=== PATIENT | female | born 1945 | race African-American/Black ===

== ENCOUNTER → 2017-03-24 | Outpatient (CLI) | payer MEDICARE, MEDICAID ==
[~2017-03-24] MED LIST: ADEMPAS PO; AMBR10TA3 PO; ANAS1TAB7 PO; BENA20TA3 PO; CARV12.545 PO; FURO20TA4 PO; LETAIRIS PO; METO25TA6 PO; NEPVIT PO; OCD PO; OMEP20TA2 PO; POTA10CA42 PO; RIVA20TA PO; SPIR25TA4 PO
[2017-03-24 10:27] LABS: EOSINOPHILS % 1.5 % (0.0-5.0); HEMATOCRIT. 34.4 % (36.0-48.0); HEMOGLOBIN. 11.1 g/dL (12.0-16.0); LYMPHOCYTES % 18.8 % (20.0-50.0); MEAN CORPUSCULAR HEMOGLOBIN 28.4 pg (28.0-32.0); MEAN CORPUSCULAR VOLUME 87.9 fL (81.0-99.0); MEAN PLATELET VOLUME 7.9 fl (7.4-10.4); MONOCYTES % 10.9 % (2.0-8.0); NEUTROPHILS % 67.8 % (40.0-76.0); PLATELET 183 x1000/uL (130-400); RED BLOOD CELL COUNT 3.91 mill/uL (4.2-5.4); RED CELL DISTRIBUTION WIDTH 15.9 % (11.6-14.6)
[2017-03-24 10:48] LABS: CARBON DIOXIDE 36 mEq/L (21-32); CHLORIDE 98 mEq/L (98-107); HDL CHOLESTEROL 91 mg/dL (40-59); LDL CHOLESTEROL 24 mg/dL (5-100)
== END | disposition home or self-care (01) ==
LOC: LAB 09:59
PROVIDERS: ATTEND Internal Medicine Nephrology
DX: I50.9 Heart failure, unspecified (principal)
CPT/HCPCS: 36415; 80048; 80061; 85025

== ENCOUNTER 2017-03-30 07:16 | Inpatient (IN) | payer MEDICARE, MEDICAID ==
[~2017-03-30] VITALS: Ht 170.2 cm; Wt 76.2 kg
[2017-03-30] MEDS ORDERED: METHYLPREDNISOLONE SOD SUCC 125 MG/2 ML VIAL IV ONE (08:00)
[2017-03-30] MEDS ORDERED: IPRATROPIUM/ALBUTEROL 0.5-3(2.5)MG/3ML NEB HHN ONE (08:00)
[2017-03-30 08:16] LABS: BASOPHILS % 1.2 % (0.0-2.0); EOSINOPHILS % 1.9 % (0.0-5.0); HEMATOCRIT. 34.1 % (36.0-48.0); LYMPHOCYTES % 20.5 % (20.0-50.0); MEAN CORPUSCULAR HEMOGLOBIN 28.2 pg (28.0-32.0); MEAN PLATELET VOLUME 8.2 fl (7.4-10.4); MONOCYTES % 11.1 % (2.0-8.0); NEUTROPHILS % 65.3 % (40.0-76.0); PLATELET 175 x1000/uL (130-400); RED BLOOD CELL COUNT 3.88 mill/uL (4.2-5.4); RED CELL DISTRIBUTION WIDTH 15.7 % (11.6-14.6)
[2017-03-30 08:27] LABS: D-DIMER 0.22 mg/L FEU (<0.50); INR 1.3; PARTIAL THROMBOPLASTIN TIME 28.5 sec (23.4-31.0); PROTHROMBIN TIME 13.1 sec (9.4-11.6)
[2017-03-30 08:33] LABS: CARBON DIOXIDE 36 mEq/L (21-32); CHLORIDE 97 mEq/L (98-107); TROPONIN I 0.32 ng/mL (0.00-0.04)
[2017-03-30] MEDS ORDERED: FUROSEMIDE 40MG/4ML VIAL IVP ONE (11:15)
[2017-03-30 17:15] VITALS: BP 105/54
[2017-03-30] MEDS ORDERED: ACETAMINOPHEN 325MG TABLET PO PRN (18:00)
[2017-03-30] MEDS ORDERED: LORAZEPAM 2MG/ML CPJ IV PRN (18:00)
[2017-03-30] MEDS ORDERED: HYDROCODONE/ACETAMINOPHEN 5/325MG TABLET PO PRN (18:00)
[2017-03-30] MEDS ORDERED: ONDANSETRON HCL 4MG/2ML VIAL IV PRN (18:00)
[2017-03-30] MEDS ORDERED: CLONIDINE 0.1MG TABLET PO PRN (18:00)
[2017-03-30] MEDS ORDERED: MORPHINE SULFATE 4 MG/ML CPJ (NOT FOR IM USE) IV PRN (18:15)
[2017-03-30 20:00] VITALS: BP 105/63
[2017-03-30] MEDS: FUROSEMIDE 40MG/4ML VIAL IV SCH (20:29)
[2017-03-30] MEDS ORDERED: ENOXAPARIN 40MG/0.4ML SYR SUBCUT SCH (21:00)
[2017-03-31] VITALS: BP 101/50
[2017-03-31 00:34] LABS: TROPONIN I 0.26 ng/mL (0.00-0.04)
[2017-03-31 04:00] VITALS: BP 105/63
[2017-03-31 05:24] LABS: CLARITY URINE CLEAR (CLEAR); COLOR URINE YELLOW (YELLOW); GLUCOSE URINE NEGATIVE (NEGATIVE); KETONES URINE NEGATIVE (NEGATIVE); LEUKOCYTE ESTERASE URINE NEGATIVE (NEGATIVE); NITRITE URINE NEGATIVE (NEGATIVE); OCCULT BLOOD URINE NEGATIVE (NEGATIVE); PROTEIN URINE NEGATIVE (NEGATIVE); SPECIFIC GRAVITY URINE 1.011 (1.005-1.030); UROBILINOGEN URINE 0.2 E.U./dL (0.2-1.0)
[2017-03-31 05:41] LABS: *AMPHETAMINES SCREEN URINE NEGATIVE (NEGATIVE); *BARBITURATES SCREEN URINE NEGATIVE (NEGATIVE); *BENZODIAZEPINES SCREEN URINE NEGATIVE (NEGATIVE); *COCAINE SCREEN URINE NEGATIVE (NEGATIVE); CANNABINOID URINE SCREEN NEGATIVE (NEGATIVE); METHADONE URINE SCREEN NEGATIVE (NEGATIVE); OPIATES URINE SCREEN NEGATIVE (NEGATIVE); PHENCYCLIDINE URINE SCREEN NEGATIVE (NEGATIVE)
[2017-03-31 07:42] LABS: TROPONIN I 0.31 ng/mL (0.00-0.04)
[2017-03-31 08:00] VITALS: BP 119/59
[2017-03-31] MEDS: CARVEDILOL 12.5MG TABLET PO SCH ×2 (08:58→21:00)
[2017-03-31] MEDS: THIAMINE HCL 100MG TABLET PO SCH (08:59)
[2017-03-31] MEDS: SPIRONOLACTONE 25MG TABLET PO SCH (08:59)
[2017-03-31] MEDS: FOLIC ACID/VITAMIN B COMP W-C TABLET PO SCH (08:59)
[2017-03-31] MEDS: ASPIRIN 81MG EC TABLET PO SCH (08:59)
[2017-03-31] MEDS ORDERED: BENAZEPRIL 20MG TABLET PO SCH (09:00)
[2017-03-31] MEDS: POTASSIUM CHLORIDE 20MEQ TABLET SR PO SCH (09:00)
[2017-03-31] MEDS ORDERED: METOPROLOL TARTRATE 25MG TABLET PO SCH (09:00)
[2017-03-31] MEDS: OMEPRAZOLE 20MG CAPSULE EXTENDED RELEASE PO SCH (09:00)
[2017-03-31] MEDS ORDERED: FUROSEMIDE 40MG/4ML VIAL IV SCH (09:00)
[2017-03-31] MEDS ORDERED: AMBRISENTAN 10 MG PO SCH (09:00)
[2017-03-31] MEDS: FUROSEMIDE 40MG/4ML VIAL IV SCH ×2 (09:00→17:48)
[2017-03-31] MEDS: CALCIUM CARBONATE/VITAMIN D3 500MG TABLET PO SCH ×2 (09:01→17:48)
[2017-03-31 12:20] VITALS: BP 106/63
[2017-03-31] MEDS: ADEMPAS 2.5 MG PO SCH ×2 (14:26→22:01)
[2017-03-31 16:00] VITALS: BP 92/50
[2017-03-31] MEDS: RIVAROXABAN 20 MG TABLET PO SCH (17:47)
[2017-03-31] MEDS: ANASTROZOLE 1 MG TABLET PO SCH (18:30)
[2017-03-31] MEDS: LETAIRIS 10 MG PO SCH (18:58)
[2017-03-31 20:25] VITALS: BP 96/55
[2017-04-01] VITALS: BP 97/56
[2017-04-01 04:00] VITALS: BP 106/48
[2017-04-01] MEDS: ADEMPAS 2.5 MG PO SCH ×2 (06:00→13:26)
[2017-04-01 07:08] LABS: CARBON DIOXIDE 37 mEq/L (21-32); CHLORIDE 94 mEq/L (98-107); PHOSPHORUS 3.8 mg/dL (2.5-4.9)
[2017-04-01 07:33] LABS: BASOPHILS % 1.2 % (0.0-2.0); EOSINOPHILS % 2.8 % (0.0-5.0); HEMOGLOBIN. 11.7 g/dL (12.0-16.0); LYMPHOCYTES % 25.6 % (20.0-50.0); MEAN CORPUSCULAR HEMOGLOBIN 28.5 pg (28.0-32.0); MEAN CORPUSCULAR VOLUME 90.4 fL (81.0-99.0); MEAN PLATELET VOLUME 8.6 fl (7.4-10.4); MONOCYTES % 11.3 % (2.0-8.0); NEUTROPHILS % 59.1 % (40.0-76.0); PLATELET 165 x1000/uL (130-400); RED BLOOD CELL COUNT 4.09 mill/uL (4.2-5.4); RED CELL DISTRIBUTION WIDTH 15.9 % (11.6-14.6)
[2017-04-01 08:00] VITALS: BP 92/56
[2017-04-01] MEDS: SPIRONOLACTONE 25MG TABLET PO SCH (08:00)
[2017-04-01] MEDS: CARVEDILOL 12.5MG TABLET PO SCH (08:00)
[2017-04-01] MEDS: ASPIRIN 81MG EC TABLET PO SCH (08:01)
[2017-04-01] MEDS: FOLIC ACID/VITAMIN B COMP W-C TABLET PO SCH (08:01)
[2017-04-01] MEDS: POTASSIUM CHLORIDE 20MEQ TABLET SR PO SCH (08:01)
[2017-04-01] MEDS: OMEPRAZOLE 20MG CAPSULE EXTENDED RELEASE PO SCH (08:01)
[2017-04-01] MEDS: THIAMINE HCL 100MG TABLET PO SCH (08:01)
[2017-04-01] MEDS: FUROSEMIDE 40MG/4ML VIAL IV SCH (08:02)
[2017-04-01] MEDS: CALCIUM CARBONATE/VITAMIN D3 500MG TABLET PO SCH ×2 (08:03→16:35)
[2017-04-01] MEDS: ANASTROZOLE 1 MG TABLET PO SCH (08:06)
[2017-04-01] MEDS: LETAIRIS 10 MG PO SCH (08:07)
[2017-04-01] MEDS ORDERED: RIVAROXABAN 20 MG TABLET PO SCH (09:00)
[2017-04-01] MEDS ORDERED: FUROSEMIDE 20MG TABLET PO SCH ×2 (09:00→18:00)
[2017-04-01 12:00] VITALS: BP 91/54
[2017-04-01 16:00] VITALS: BP 99/52
[2017-04-01] MEDS: RIVAROXABAN 20 MG TABLET PO SCH (16:35)
[2017-04-01 18:11] VITALS: BP 99/52
== END 2017-04-01 19:20 | disposition home or self-care (01) | DRG 291 ==
LOC: ER 07:36 → 7WST 11:59 → EDBEDREQ 12:00 → EDBEDREQTM 12:00 → ENRESERV 15:46
PROVIDERS: ADMIT Internal Medicine Nephrology; ATTEND Internal Medicine Nephrology
DX: I11.0 Hypertensive heart disease with heart failure (principal); J96.00 Acute respiratory failure, unspecified whether with hypoxia or hypercapnia; J44.1 Chronic obstructive pulmonary disease with (acute) exacerbation; I27.2 Other secondary pulmonary hypertension; E44.1 Mild protein-calorie malnutrition; Z99.81 Dependence on supplemental oxygen; I50.43 Acute on chronic combined systolic (congestive) and diastolic (congestive) heart failure; D64.9 Anemia, unspecified; D72.819 Decreased white blood cell count, unspecified; Z96.651 Presence of right artificial knee joint; G89.29 Other chronic pain; I48.91 Unspecified atrial fibrillation; K43.9 Ventral hernia without obstruction or gangrene; Z82.49 Family history of ischemic heart disease and other diseases of the circulatory system; Z85.3 Personal history of malignant neoplasm of breast; Z86.711 Personal history of pulmonary embolism; Z86.718 Personal history of other venous thrombosis and embolism; Z92.3 Personal history of irradiation; Z88.6 Allergy status to analgesic agent; Z91.013 Allergy to seafood; Z79.899 Other long term (current) drug therapy; Z68.26 Body mass index [BMI] 26.0-26.9, adult
CPT/HCPCS: 36415; 71010; 76700; 80048; 80053; 80305; 81003; 82040; 82550; 83605; 83690; 83735; 83880; 84100; 84484; 85025; 85379; 85610; 85730; 87040; 93005; 93970; 94640; 96374; 96375; 99291; J1650; J1940; J2930; J7620

== ENCOUNTER 2018-03-16 05:03 | Inpatient (IN) | payer MEDICARE, MEDICAID ==
[~2018-03-16] VITALS: Ht 167.6 cm; Wt 80.1 kg
[2018-03-16] VITALS (31 sets, daily range): BP systolic 91–136; BP diastolic 45–73
[~2018-03-16 05:03] MED LIST changes: +BENA20TA10 PO; -BENA20TA3 PO; -SPIR25TA4 PO; +SPIR25TA6 PO
[2018-03-16] MEDS ORDERED: METHYLPREDNISOLONE SOD SUCC 125 MG/2 ML VIAL IV STA (06:21)
[2018-03-16] MEDS ORDERED: ALBUTEROL (0.083%) 2.5MG/3ML NEB HHN STA (06:21)
[2018-03-16] MEDS ORDERED: IPRATROPIUM BROMIDE (0.02%) 0.5MG/2.5ML NEB HHN STA (06:21)
[2018-03-16 08:07] LABS: BASOPHILS % 0.6 % (0.0-2.0); EOSINOPHILS % 0.9 % (0.0-5.0); HEMATOCRIT. 28.4 % (36.0-48.0); LYMPHOCYTES % 21.4 % (20.0-50.0); MEAN CORPUSCULAR HEMOGLOBIN 25.1 pg (28.0-32.0); MEAN CORPUSCULAR VOLUME 79.3 fL (81.0-99.0); MEAN PLATELET VOLUME 8.1 fl (7.4-10.4); MONOCYTES % 10.5 % (2.0-8.0); NEUTROPHILS % 66.6 % (40.0-76.0); PLATELET 299 x1000/uL (130-400); RED BLOOD CELL COUNT 3.58 mill/uL (4.2-5.4); RED CELL DISTRIBUTION WIDTH 18.8 % (11.6-14.6)
[2018-03-16 08:09] LABS: INR 1.3; PROTHROMBIN TIME 12.7 sec (9.1-11.1)
[2018-03-16 08:16] LABS: CHLORIDE 93 mEq/L (98-107)
[2018-03-16] MEDS ORDERED: ASPIRIN 325MG EC TABLET PO ONE (09:00)
[2018-03-16] MEDS ORDERED: ONDANSETRON HCL 4MG/2ML INJ IV ONE (10:00)
[2018-03-16] MEDS: FUROSEMIDE 40MG/4ML VIAL IVP SCH ×3 (10:53→10:58)
[2018-03-16] MEDS ORDERED: FUROSEMIDE 40MG/4ML VIAL IVP NR (11:45)
[2018-03-16 11:46] LABS: BG BASE EXCESS 5.7 mmol/L (-2.0-2.0); BG DEOXYHEMOGLOBIN 3.4 % (0.0-5.0); BG FRACTION INSPIRED OXYGEN 100; BG HCO3 ACT 41.4 mmol/L (22.0-26.0); BG METHEMOGLOBIN 0.4 % (0.0-1.5); BG OXYGEN SATURATION 96.6 % (92.0-98.5); BG OXYHEMOGLOBIN 96.2 % (94.0-97.0); BG PCO2 183.1 mmHg (35.0-45.0); BG PH 6.972 (7.350-7.450); BG PO2 125.3 mmHg (75.0-100.0); BG SAMPLE SITE LEFT BRACHIAL; BG TOTAL HEMOGLOBIN 10.7 g/dL (12.0-18.0); BG VENT MODE AMBU BAG
[2018-03-16] MEDS ORDERED: SUCCINYLCHOLINE CHLORIDE 200MG/10ML VIAL IV ONE (12:00)
[2018-03-16] MEDS ORDERED: ETOMIDATE 2MG/ML 10ML VIAL IV ONE (12:00)
[2018-03-16] MEDS ORDERED: NON FORMULARY PATIENT HOME MED EA XX SCH ×2 (12:45)
[2018-03-16] MEDS ORDERED: IPRATROPIUM/ALBUTEROL 0.5-3(2.5)MG/3ML NEB HHN PRN (12:45)
[2018-03-16] MEDS: PROPOFOL 10MG/ML 100ML 100 ML IV PRN (12:52)
[2018-03-16] MEDS: METHYLPREDNISOLONE SOD SUCC 125 MG/2 ML VIAL IV SCH ×2 (12:52→18:23)
[2018-03-16 13:21] LABS: BG CARBOXYHEMOGLOBIN 0.3 % (0.5-1.5); BG DEOXYHEMOGLOBIN 0.5 % (0.0-5.0); BG FRACTION INSPIRED OXYGEN 100; BG HCO3 ACT 29.2 mmol/L (22.0-26.0); BG METHEMOGLOBIN 0.3 % (0.0-1.5); BG OXYGEN SATURATION 99.5 % (92.0-98.5); BG OXYHEMOGLOBIN 98.9 % (94.0-97.0); BG PCO2 59.9 mmHg (35.0-45.0); BG PH 7.306 (7.350-7.450); BG PO2 355.1 mmHg (75.0-100.0); BG SAMPLE SITE RIGHT RADIAL; BG TIDAL VOLUME(mL) 500 mL; BG TOTAL HEMOGLOBIN 9.8 g/dL (12.0-18.0); BG VENT MODE VENT - A/C; BG VENT RATE 24 set
[2018-03-16] MEDS: PANTOPRAZOLE SODIUM 40 MG/VIAL IV SCH (14:31)
[2018-03-16] MEDS: CEFEPIME 1,000 MG in DEXTROSE 5% WATER 50 ML IV SCH (14:31)
[2018-03-16] MEDS: BUDESONIDE 0.5MG/2ML NEB HHN SCH ×2 (15:14→20:57)
[2018-03-16] MEDS: IPRATROPIUM/ALBUTEROL 0.5-3(2.5)MG/3ML NEB HHN SCH ×2 (15:14→20:58)
[2018-03-16 16:19] LABS: CLARITY URINE CLEAR (CLEAR); COLOR URINE YELLOW (YELLOW); KETONES URINE NEGATIVE (NEGATIVE); LEUKOCYTE ESTERASE URINE TRACE (NEGATIVE); NITRITE URINE NEGATIVE (NEGATIVE); OCCULT BLOOD URINE NEGATIVE (NEGATIVE); PROTEIN URINE 1+ (NEGATIVE); SPECIFIC GRAVITY URINE 1.015 (1.005-1.030); UROBILINOGEN URINE 0.2 E.U./dL (0.2-1.0)
[2018-03-16] MEDS: LETAIRIS 10 MG PO SCH (16:28)
[2018-03-16] MEDS: ENOXAPARIN 80MG/0.8ML SYR SUBCUT SCH (16:28)
[2018-03-16] MEDS: METRONIDAZOLE 500 MG PREMIX 100 ML IV SCH ×2 (16:29→22:34)
[2018-03-16 16:38] LABS: *AMPHETAMINES SCREEN URINE NEGATIVE (NEGATIVE); CANNABINOID URINE SCREEN NEGATIVE (NEGATIVE)
[2018-03-16 16:39] LABS: *BARBITURATES SCREEN URINE NEGATIVE (NEGATIVE); *BENZODIAZEPINES SCREEN URINE NEGATIVE (NEGATIVE); *COCAINE SCREEN URINE NEGATIVE (NEGATIVE); METHADONE URINE SCREEN NEGATIVE (NEGATIVE); OPIATES URINE SCREEN NEGATIVE (NEGATIVE); PHENCYCLIDINE URINE SCREEN NEGATIVE (NEGATIVE)
[2018-03-16] MEDS ORDERED: ADEMPAS 2.5 MG PO SCH (17:00)
[2018-03-16] MEDS: AMLODIPINE 5MG TABLET PO SCH (21:00)
[2018-03-17] VITALS (39 sets, daily range): BP systolic 80–155; BP diastolic 44–76
[2018-03-17] MEDS: IPRATROPIUM/ALBUTEROL 0.5-3(2.5)MG/3ML NEB HHN SCH ×6 (00:22→20:26)
[2018-03-17] MEDS: METHYLPREDNISOLONE SOD SUCC 125 MG/2 ML VIAL IV SCH ×5 (00:45→23:34)
[2018-03-17] MEDS ORDERED: DEXTROSE 50% WATER 50ML SYRINGE IV PRN (01:00)
[2018-03-17] MEDS: CEFEPIME 1,000 MG in DEXTROSE 5% WATER 50 ML IV SCH ×2 (01:29→12:53)
[2018-03-17] MEDS: PROPOFOL 10MG/ML 100ML 100 ML IV PRN ×2 (05:00→18:41)
[2018-03-17] MEDS: ENOXAPARIN 80MG/0.8ML SYR SUBCUT SCH (05:02)
[2018-03-17] MEDS: METRONIDAZOLE 500 MG PREMIX 100 ML IV SCH ×3 (05:03→21:02)
[2018-03-17] MEDS ORDERED: BLOOD SUGAR DIAGNOSTIC STRIP TEST SCH (06:00)
[2018-03-17 06:27] LABS: HEMATOCRIT. 25.2 % (36.0-48.0); HEMOGLOBIN. 8.1 g/dL (12.0-16.0); MEAN CORPUSCULAR HEMOGLOBIN 24.6 pg (28.0-32.0); MEAN CORPUSCULAR VOLUME 76.8 fL (81.0-99.0); MEAN PLATELET VOLUME 8.3 fl (7.4-10.4); PLATELET 252 x1000/uL (130-400); RED BLOOD CELL COUNT 3.28 mill/uL (4.2-5.4); RED CELL DISTRIBUTION WIDTH 18.6 % (11.6-14.6)
[2018-03-17] MEDS: BLOOD SUGAR DIAGNOSTIC STRIP TEST SCH ×4 (07:30→23:34)
[2018-03-17] MEDS: BUDESONIDE 0.5MG/2ML NEB HHN SCH ×2 (07:44→20:35)
[2018-03-17] MEDS: INSULIN LISPRO 100 UNITS/ML SUBCUT SCH ×4 (08:20→20:57)
[2018-03-17] MEDS: AMLODIPINE 5MG TABLET PO SCH ×2 (09:00→20:29)
[2018-03-17] MEDS ORDERED: FUROSEMIDE 20MG/2ML VIAL IVP SCH ×3 (09:00)
[2018-03-17 09:15] LABS: PLATELET ESTIMATE NORMAL
[2018-03-17 09:22] LABS: BG BASE EXCESS 7.1 mmol/L (-2.0-2.0); BG CARBOXYHEMOGLOBIN 0.8 % (0.5-1.5); BG DEOXYHEMOGLOBIN 2.8 % (0.0-5.0); BG FRACTION INSPIRED OXYGEN 60; BG HCO3 ACT 31.1 mmol/L (22.0-26.0); BG METHEMOGLOBIN 0.3 % (0.0-1.5); BG OXYGEN SATURATION 97.2 % (92.0-98.5); BG OXYHEMOGLOBIN 96.1 % (94.0-97.0); BG PCO2 41.6 mmHg (35.0-45.0); BG PH 7.491 (7.350-7.450); BG PO2 93.5 mmHg (75.0-100.0); BG SAMPLE SITE RIGHT BRACHIAL; BG TIDAL VOLUME(mL) 500 mL; BG TOTAL HEMOGLOBIN 8.3 g/dL (12.0-18.0); BG VENT MODE VENT - A/C; BG VENT RATE 16 set
[2018-03-17] MEDS: LETAIRIS 10 MG PO SCH (09:28)
[2018-03-17] MEDS: PANTOPRAZOLE SODIUM 40 MG/VIAL IV SCH (09:29)
[2018-03-17] MEDS ORDERED: PROPOFOL 10MG/ML 100ML 100 ML IV PRN (11:01)
[2018-03-17 16:32] LABS: HEMATOCRIT 23.9 % (36.0-48.0); HEMOGLOBIN 7.8 g/dL (12.0-16.0)
[2018-03-18] VITALS (47 sets, daily range): BP systolic 81–122; BP diastolic 48–82
[2018-03-18] MEDS: IPRATROPIUM/ALBUTEROL 0.5-3(2.5)MG/3ML NEB HHN SCH ×7 (00:06→23:59)
[2018-03-18] MEDS: CEFEPIME 1,000 MG in DEXTROSE 5% WATER 50 ML IV SCH ×2 (01:49→14:13)
[2018-03-18] MEDS: METRONIDAZOLE 500 MG PREMIX 100 ML IV SCH ×3 (05:17→21:24)
[2018-03-18] MEDS: METHYLPREDNISOLONE SOD SUCC 125 MG/2 ML VIAL IV SCH (05:17)
[2018-03-18] MEDS: BLOOD SUGAR DIAGNOSTIC STRIP TEST SCH ×3 (05:26→17:23)
[2018-03-18 05:35] LABS: HEMATOCRIT. 23.7 % (36.0-48.0); HEMOGLOBIN. 7.7 g/dL (12.0-16.0); MEAN CORPUSCULAR VOLUME 76.9 fL (81.0-99.0); MEAN PLATELET VOLUME 8.4 fl (7.4-10.4); PLATELET 228 x1000/uL (130-400); RED BLOOD CELL COUNT 3.08 mill/uL (4.2-5.4); RED CELL DISTRIBUTION WIDTH 18.9 % (11.6-14.6)
[2018-03-18 08:06] LABS: BG BASE EXCESS 9.4 mmol/L (-2.0-2.0); BG CARBOXYHEMOGLOBIN 0.1 % (0.5-1.5); BG DEOXYHEMOGLOBIN 2.5 % (0.0-5.0); BG FRACTION INSPIRED OXYGEN 60; BG HCO3 ACT 33.5 mmol/L (22.0-26.0); BG METHEMOGLOBIN 0.4 % (0.0-1.5); BG OXYGEN SATURATION 97.5 % (92.0-98.5); BG PCO2 43.8 mmHg (35.0-45.0); BG PH 7.501 (7.350-7.450); BG SAMPLE SITE RIGHT RADIAL; BG TIDAL VOLUME(mL) 500 mL; BG TOTAL HEMOGLOBIN 8.2 g/dL (12.0-18.0); BG VENT MODE VENT - A/C; BG VENT RATE 16 set
[2018-03-18] MEDS: AMLODIPINE 5MG TABLET PO SCH (08:13)
[2018-03-18] MEDS: BUDESONIDE 0.5MG/2ML NEB HHN SCH ×2 (08:47→19:51)
[2018-03-18 08:50] LABS: PLATELET ESTIMATE NORMAL
[2018-03-18] MEDS: PANTOPRAZOLE SODIUM 40 MG/VIAL IV SCH (09:51)
[2018-03-18] MEDS: LETAIRIS 10 MG PO SCH (09:51)
[2018-03-18] MEDS: PROPOFOL 10MG/ML 100ML 100 ML IV PRN ×2 (10:04→20:28)
[2018-03-18] MEDS: INSULIN LISPRO 100 UNITS/ML SUBCUT SCH ×2 (12:00→17:39)
[2018-03-18] MEDS ORDERED: AMINOPHYLLINE 1,000 MG in SODIUM CHLORIDE 0.9% 210 ML IV SCH (14:00)
[2018-03-18] MEDS: METHYLPREDNISOLONE SOD SUCC 40 MG/ML VIAL IV SCH (17:23)
[2018-03-18] MEDS ORDERED: IOHEXOL-350 100 ML BOTTLE ONE (19:44)
[2018-03-19] VITALS (46 sets, daily range): BP systolic 89–150; BP diastolic 44–74
[2018-03-19] MEDS: BLOOD SUGAR DIAGNOSTIC STRIP TEST SCH ×4 (00:25→18:06)
[2018-03-19] MEDS: CEFEPIME 1,000 MG in DEXTROSE 5% WATER 50 ML IV SCH ×2 (00:54→14:09)
[2018-03-19] MEDS: IPRATROPIUM/ALBUTEROL 0.5-3(2.5)MG/3ML NEB HHN SCH ×5 (04:05→20:16)
[2018-03-19] MEDS: METRONIDAZOLE 500 MG PREMIX 100 ML IV SCH ×3 (05:29→21:43)
[2018-03-19] MEDS: METHYLPREDNISOLONE SOD SUCC 40 MG/ML VIAL IV SCH ×2 (05:29→18:11)
[2018-03-19] MEDS: PROPOFOL 10MG/ML 100ML 100 ML IV PRN ×2 (05:30→20:40)
[2018-03-19 05:56] LABS: HEMATOCRIT. 24.8 % (36.0-48.0); HEMOGLOBIN. 7.9 g/dL (12.0-16.0); MEAN PLATELET VOLUME 8.9 fl (7.4-10.4); PLATELET 201 x1000/uL (130-400); RED BLOOD CELL COUNT 3.14 mill/uL (4.2-5.4); RED CELL DISTRIBUTION WIDTH 19.3 % (11.6-14.6)
[2018-03-19] MEDS: INSULIN LISPRO 100 UNITS/ML SUBCUT SCH ×4 (06:00→18:00)
[2018-03-19 06:21] LABS: CHLORIDE 101 mEq/L (98-107)
[2018-03-19 07:44] LABS: BG BASE EXCESS 6.9 mmol/L (-2.0-2.0); BG CARBOXYHEMOGLOBIN 0.5 % (0.5-1.5); BG FRACTION INSPIRED OXYGEN 40; BG HCO3 ACT 32.7 mmol/L (22.0-26.0); BG METHEMOGLOBIN 0.4 % (0.0-1.5); BG OXYHEMOGLOBIN 94.1 % (94.0-97.0); BG PCO2 53.8 mmHg (35.0-45.0); BG PH 7.401 (7.350-7.450); BG PO2 81.4 mmHg (75.0-100.0); BG SAMPLE SITE RIGHT BRACHIAL; BG TIDAL VOLUME(mL) 500 mL; BG TOTAL HEMOGLOBIN 8.6 g/dL (12.0-18.0); BG VENT MODE VENT - A/C; BG VENT RATE 12 set
[2018-03-19 09:03] LABS: PLATELET ESTIMATE NORMAL
[2018-03-19] MEDS: BUDESONIDE 0.5MG/2ML NEB HHN SCH (09:03)
[2018-03-19] MEDS: PANTOPRAZOLE SODIUM 40 MG/VIAL IV SCH (09:08)
[2018-03-19] MEDS: LETAIRIS 10 MG PO SCH (09:09)
[2018-03-19 14:43] LABS: BG BASE EXCESS 8.6 mmol/L (-2.0-2.0); BG CARBOXYHEMOGLOBIN 0.1 % (0.5-1.5); BG DEOXYHEMOGLOBIN 9.3 % (0.0-5.0); BG METHEMOGLOBIN 0.1 % (0.0-1.5); BG OXYGEN SATURATION 90.7 % (92.0-98.5); BG OXYHEMOGLOBIN 90.5 % (94.0-97.0); BG PCO2 52.1 mmHg (35.0-45.0); BG PH 7.432 (7.350-7.450); BG PO2 60.7 mmHg (75.0-100.0); BG PRESSURE SUPPORT 14; BG SAMPLE SITE RIGHT RADIAL; BG TIDAL VOLUME(mL) 500 mL; BG TOTAL HEMOGLOBIN 9.3 g/dL (12.0-18.0); BG VENT MODE VENT - SIMV; BG VENT RATE 12 set
[2018-03-19] MEDS: LACTULOSE 20G/30ML UDC PO PRN (20:40)
[2018-03-19] MEDS: METOCLOPRAMIDE HCL 10MG/2ML VIAL IV SCH (23:40)
[2018-03-20] VITALS (46 sets, daily range): BP systolic 97–139; BP diastolic 51–75
[2018-03-20] MEDS: IPRATROPIUM/ALBUTEROL 0.5-3(2.5)MG/3ML NEB HHN SCH ×6 (00:18→20:56)
[2018-03-20] MEDS: BLOOD SUGAR DIAGNOSTIC STRIP TEST SCH ×5 (00:58→23:37)
[2018-03-20] MEDS: CEFEPIME 1,000 MG in DEXTROSE 5% WATER 50 ML IV SCH ×2 (00:59→12:16)
[2018-03-20] MEDS: PROPOFOL 10MG/ML 100ML 100 ML IV PRN ×3 (02:58→19:53)
[2018-03-20] MEDS: LACTULOSE 20G/30ML UDC PO PRN ×2 (05:16→18:42)
[2018-03-20] MEDS: METHYLPREDNISOLONE SOD SUCC 40 MG/ML VIAL IV SCH ×2 (05:16→17:40)
[2018-03-20] MEDS: METRONIDAZOLE 500 MG PREMIX 100 ML IV SCH ×3 (05:16→22:05)
[2018-03-20] MEDS: METOCLOPRAMIDE HCL 10MG/2ML VIAL IV SCH ×4 (05:16→23:41)
[2018-03-20] MEDS: INSULIN LISPRO 100 UNITS/ML SUBCUT SCH ×5 (06:00→23:42)
[2018-03-20 07:20] LABS: BG BASE EXCESS 9.7 mmol/L (-2.0-2.0); BG CARBOXYHEMOGLOBIN 0.3 % (0.5-1.5); BG DEOXYHEMOGLOBIN 4.5 % (0.0-5.0); BG FRACTION INSPIRED OXYGEN 50; BG HCO3 ACT 35.3 mmol/L (22.0-26.0); BG METHEMOGLOBIN 0.1 % (0.0-1.5); BG OXYGEN SATURATION 95.5 % (92.0-98.5); BG OXYHEMOGLOBIN 95.1 % (94.0-97.0); BG PCO2 54.7 mmHg (35.0-45.0); BG PH 7.428 (7.350-7.450); BG PO2 81.6 mmHg (75.0-100.0); BG PRESSURE SUPPORT 14; BG SAMPLE SITE RIGHT BRACHIAL; BG TIDAL VOLUME(mL) 500 mL; BG VENT MODE VENT - SIMV; BG VENT RATE 12 set
[2018-03-20] MEDS: PANTOPRAZOLE SODIUM 40 MG/VIAL IV SCH (08:38)
[2018-03-20] MEDS: LETAIRIS 10 MG PO SCH (08:38)
[2018-03-20 09:06] LABS: HEMATOCRIT. 29.5 % (36.0-48.0); HEMOGLOBIN. 9.1 g/dL (12.0-16.0); MEAN CORPUSCULAR HEMOGLOBIN 24.7 pg (28.0-32.0); MEAN CORPUSCULAR VOLUME 79.9 fL (81.0-99.0); MEAN PLATELET VOLUME 8.8 fl (7.4-10.4); PLATELET 220 x1000/uL (130-400); RED CELL DISTRIBUTION WIDTH 19.6 % (11.6-14.6)
[2018-03-20 09:07] LABS: CHLORIDE 105 mEq/L (98-107)
[2018-03-20 09:33] LABS: PLATELET ESTIMATE NORMAL
[2018-03-20] MEDS: ENOXAPARIN 40MG/0.4ML SYR SUBCUT SCH (10:51)
[2018-03-21] VITALS (37 sets, daily range): BP systolic 88–128; BP diastolic 51–78
[2018-03-21] MEDS: CEFEPIME 1,000 MG in DEXTROSE 5% WATER 50 ML IV SCH ×2 (00:30→13:32)
[2018-03-21] MEDS: IPRATROPIUM/ALBUTEROL 0.5-3(2.5)MG/3ML NEB HHN SCH ×6 (00:37→20:21)
[2018-03-21 05:32] LABS: HEMATOCRIT. 25.4 % (36.0-48.0); MEAN CORPUSCULAR HEMOGLOBIN 24.8 pg (28.0-32.0); MEAN PLATELET VOLUME 8.6 fl (7.4-10.4); PLATELET 193 x1000/uL (130-400); RED BLOOD CELL COUNT 3.21 mill/uL (4.2-5.4)
[2018-03-21] MEDS: METOCLOPRAMIDE HCL 10MG/2ML VIAL IV SCH ×4 (05:38→23:40)
[2018-03-21] MEDS: METHYLPREDNISOLONE SOD SUCC 40 MG/ML VIAL IV SCH (05:38)
[2018-03-21] MEDS: BLOOD SUGAR DIAGNOSTIC STRIP TEST SCH ×4 (05:39→23:53)
[2018-03-21] MEDS: PROPOFOL 10MG/ML 100ML 100 ML IV PRN (05:39)
[2018-03-21] MEDS: METRONIDAZOLE 500 MG PREMIX 100 ML IV SCH ×3 (05:39→21:55)
[2018-03-21] MEDS: INSULIN LISPRO 100 UNITS/ML SUBCUT SCH ×4 (05:52→23:53)
[2018-03-21 05:53] LABS: CHLORIDE 107 mEq/L (98-107)
[2018-03-21 06:58] LABS: PLATELET ESTIMATE NORMAL
[2018-03-21] MEDS: ENOXAPARIN 40MG/0.4ML SYR SUBCUT SCH (08:37)
[2018-03-21] MEDS: LETAIRIS 10 MG PO SCH (08:37)
[2018-03-21] MEDS: PANTOPRAZOLE SODIUM 40 MG/VIAL IV SCH (08:37)
[2018-03-21 08:40] LABS: BG BASE EXCESS 8.2 mmol/L (-2.0-2.0); BG CARBOXYHEMOGLOBIN 0.8 % (0.5-1.5); BG DEOXYHEMOGLOBIN 6.1 % (0.0-5.0); BG FRACTION INSPIRED OXYGEN 50; BG HCO3 ACT 33.3 mmol/L (22.0-26.0); BG METHEMOGLOBIN 0.4 % (0.0-1.5); BG OXYGEN SATURATION 93.8 % (92.0-98.5); BG OXYHEMOGLOBIN 92.7 % (94.0-97.0); BG PCO2 50.2 mmHg (35.0-45.0); BG PO2 76.8 mmHg (75.0-100.0); BG PRESSURE SUPPORT 14; BG SAMPLE SITE RIGHT RADIAL; BG TIDAL VOLUME(mL) 500 mL; BG TOTAL HEMOGLOBIN 8.4 g/dL (12.0-18.0); BG VENT MODE VENT - SIMV; BG VENT RATE 12 set
[2018-03-21] MEDS ORDERED: FUROSEMIDE 40MG/4ML VIAL IVP NR (09:15)
[2018-03-21 10:40] LABS: BG BASE EXCESS 6.5 mmol/L (-2.0-2.0); BG CARBOXYHEMOGLOBIN 0.6 % (0.5-1.5); BG DEOXYHEMOGLOBIN 8.9 % (0.0-5.0); BG FRACTION INSPIRED OXYGEN 40; BG HCO3 ACT 31.8 mmol/L (22.0-26.0); BG METHEMOGLOBIN 0.3 % (0.0-1.5); BG OXYHEMOGLOBIN 90.2 % (94.0-97.0); BG PCO2 49.4 mmHg (35.0-45.0); BG PH 7.426 (7.350-7.450); BG PO2 63.9 mmHg (75.0-100.0); BG PRESSURE SUPPORT 8; BG SAMPLE SITE RIGHT RADIAL; BG TOTAL HEMOGLOBIN 9.6 g/dL (12.0-18.0); BG VENT MODE VENT - CPAP
[2018-03-21] MEDS ORDERED: DILTIAZEM HCL 125 MG in DEXT 5% WATER 100 ML IV PRN (11:45)
[2018-03-21] MEDS ORDERED: DILTIAZEM HCL 5MG/ML 5ML VIAL IV ONE (11:45)
[2018-03-21] MEDS ORDERED: MIDAZOLAM HCL 5 MG/ML VIAL IV NR ×2 (11:47→11:48)
[2018-03-21] MEDS ORDERED: VERAPAMIL HCL 2.5 MG/1 ML 2ML VIAL IV NR (11:50)
[2018-03-21] MEDS ORDERED: AMIODARONE HCL 900 MG in DEXT 5% WATER 500 ML IV NR (15:30)
[2018-03-21] MEDS: VERAPAMIL HCL 2.5 MG/1 ML 2ML VIAL IV PRN (23:40)
[2018-03-22] VITALS (48 sets, daily range): BP systolic 91–112; BP diastolic 43–77
[2018-03-22] MEDS ORDERED: MORPHINE SULFATE 2 MG/ML CPJ (NOT FOR IM USE) IV PRN (00:30)
[2018-03-22] MEDS: CEFEPIME 1,000 MG in DEXTROSE 5% WATER 50 ML IV SCH ×2 (00:37→12:09)
[2018-03-22] MEDS ORDERED: MORPHINE SULFATE 4 MG/ML CPJ (NOT FOR IM USE) IV PRN (00:45)
[2018-03-22] MEDS ORDERED: AMIODARONE HCL 50MG/ML 3ML VIAL IV ONE (01:30)
[2018-03-22] MEDS ORDERED: AMIODARONE HCL 150 MG in DEXT 5% WATER 100 ML IV ONE (01:45)
[2018-03-22] MEDS ORDERED: AMIODARONE HCL 150 MG in DEXT 5% WATER 100 ML IV NR (01:45)
[2018-03-22] MEDS: VERAPAMIL HCL 2.5 MG/1 ML 2ML VIAL IV PRN ×2 (03:30→08:53)
[2018-03-22] MEDS: IPRATROPIUM/ALBUTEROL 0.5-3(2.5)MG/3ML NEB HHN SCH ×6 (04:08→20:30)
[2018-03-22] MEDS: METOCLOPRAMIDE HCL 10MG/2ML VIAL IV SCH ×3 (05:23→17:17)
[2018-03-22] MEDS: METRONIDAZOLE 500 MG PREMIX 100 ML IV SCH ×3 (05:23→21:44)
[2018-03-22] MEDS: BLOOD SUGAR DIAGNOSTIC STRIP TEST SCH (05:23)
[2018-03-22] MEDS: INSULIN LISPRO 100 UNITS/ML SUBCUT SCH (05:29)
[2018-03-22 06:50] LABS: HEMATOCRIT. 27.4 % (36.0-48.0); HEMOGLOBIN. 8.6 g/dL (12.0-16.0); MEAN CORPUSCULAR HEMOGLOBIN 24.6 pg (28.0-32.0); MEAN CORPUSCULAR VOLUME 78.5 fL (81.0-99.0); MEAN PLATELET VOLUME 8.8 fl (7.4-10.4); PLATELET 215 x1000/uL (130-400); RED BLOOD CELL COUNT 3.49 mill/uL (4.2-5.4); RED CELL DISTRIBUTION WIDTH 19.2 % (11.6-14.6)
[2018-03-22 06:53] LABS: CHLORIDE 104 mEq/L (98-107)
[2018-03-22] MEDS: PANTOPRAZOLE SODIUM 40 MG/VIAL IV SCH (08:52)
[2018-03-22] MEDS: LETAIRIS 10 MG PO SCH (08:53)
[2018-03-22] MEDS: METHYLPREDNISOLONE SOD SUCC 40 MG/ML VIAL IV SCH (08:54)
[2018-03-22 09:39] LABS: PLATELET ESTIMATE NORMAL
[2018-03-22] MEDS: ENOXAPARIN 80MG/0.8ML SYR SUBCUT SCH ×2 (10:45→21:49)
[2018-03-22] MEDS: KETOROLAC TROMETHAMINE 0.4% OPHTH 5ML LEFTEYE SCH ×2 (12:17→17:17)
[2018-03-22] MEDS ORDERED: DILTIAZEM HCL 30MG TABLET PO SCH (14:00)
[2018-03-22] MEDS: DILTIAZEM 125MG in DEXTROSE 5% WATER 125ML IV PRN (16:30)
[2018-03-22] MEDS: ADEMPAS 2.5 MG PO SCH (21:45)
[2018-03-23] VITALS (50 sets, daily range): BP systolic 84–130; BP diastolic 44–83
[2018-03-23] MEDS: METOCLOPRAMIDE HCL 10MG/2ML VIAL IV SCH ×4 (00:12→18:17)
[2018-03-23] MEDS: KETOROLAC TROMETHAMINE 0.4% OPHTH 5ML LEFTEYE SCH ×4 (00:12→18:17)
[2018-03-23] MEDS: IPRATROPIUM/ALBUTEROL 0.5-3(2.5)MG/3ML NEB HHN SCH ×3 (00:31→08:12)
[2018-03-23] MEDS: DILTIAZEM 125MG in DEXTROSE 5% WATER 125ML IV PRN ×2 (01:01→08:49)
[2018-03-23] MEDS: CEFEPIME 1,000 MG in DEXTROSE 5% WATER 50 ML IV SCH ×2 (01:01→13:30)
[2018-03-23] MEDS: VERAPAMIL HCL 2.5 MG/1 ML 2ML VIAL IV PRN (01:22)
[2018-03-23 05:47] LABS: HEMATOCRIT. 29.4 % (36.0-48.0); HEMOGLOBIN. 9.1 g/dL (12.0-16.0); MEAN CORPUSCULAR HEMOGLOBIN 24.2 pg (28.0-32.0); MEAN CORPUSCULAR VOLUME 78.4 fL (81.0-99.0); MEAN PLATELET VOLUME 8.8 fl (7.4-10.4); PLATELET 233 x1000/uL (130-400); RED BLOOD CELL COUNT 3.75 mill/uL (4.2-5.4)
[2018-03-23] MEDS: ADEMPAS 2.5 MG PO SCH ×3 (05:47→21:55)
[2018-03-23] MEDS: METRONIDAZOLE 500 MG PREMIX 100 ML IV SCH ×2 (05:47→14:09)
[2018-03-23 06:02] LABS: CHLORIDE 100 mEq/L (98-107)
[2018-03-23] MEDS: METHYLPREDNISOLONE SOD SUCC 40 MG/ML VIAL IV SCH (08:49)
[2018-03-23] MEDS: ENOXAPARIN 80MG/0.8ML SYR SUBCUT SCH ×2 (08:49→21:53)
[2018-03-23] MEDS: PANTOPRAZOLE SODIUM 40 MG/VIAL IV SCH (08:49)
[2018-03-23] MEDS: LETAIRIS 10 MG PO SCH (09:00)
[2018-03-23] MEDS ORDERED: FUROSEMIDE 20MG/2ML VIAL IVP SCH (09:30)
[2018-03-23 09:32] LABS: BG BASE EXCESS 6.5 mmol/L (-2.0-2.0); BG CARBOXYHEMOGLOBIN 0.4 % (0.5-1.5); BG DEOXYHEMOGLOBIN 11.2 % (0.0-5.0); BG FRACTION INSPIRED OXYGEN 36; BG HCO3 ACT 31.5 mmol/L (22.0-26.0); BG METHEMOGLOBIN 0.3 % (0.0-1.5); BG OXYGEN SATURATION 88.7 % (92.0-98.5); BG OXYHEMOGLOBIN 88.1 % (94.0-97.0); BG PCO2 47.9 mmHg (35.0-45.0); BG PH 7.436 (7.350-7.450); BG PO2 60.1 mmHg (75.0-100.0); BG SAMPLE SITE RIGHT BRACHIAL; BG TOTAL HEMOGLOBIN 9.7 g/dL (12.0-18.0); BG VENT MODE NASAL CANNULA
[2018-03-23] MEDS ORDERED: ALBUMIN HUMAN 12.5GM/50ML (25%) IV SCH (10:00)
[2018-03-23 10:02] LABS: NUCLEATED RED BLOOD CELLS 1 /100 WBC
[2018-03-23 10:05] LABS: PLATELET ESTIMATE NORMAL
[2018-03-23] MEDS ORDERED: AMIODARONE HCL 200 MG TABLET PO SCH (11:30)
[2018-03-23 14:44] LABS: CLARITY URINE CLEAR (CLEAR); COLOR URINE YELLOW (YELLOW); KETONES URINE NEGATIVE (NEGATIVE); LEUKOCYTE ESTERASE URINE NEGATIVE (NEGATIVE); NITRITE URINE NEGATIVE (NEGATIVE); OCCULT BLOOD URINE TRACE (NEGATIVE); PROTEIN URINE 1+ (NEGATIVE); SPECIFIC GRAVITY URINE 1.011 (1.005-1.030); UROBILINOGEN URINE 0.2 E.U./dL (0.2-1.0)
[2018-03-23 15:30] LABS: BG BASE EXCESS 9.5 mmol/L (-2.0-2.0); BG DEOXYHEMOGLOBIN 10.6 % (0.0-5.0); BG FRACTION INSPIRED OXYGEN 50; BG HCO3 ACT 34.6 mmol/L (22.0-26.0); BG METHEMOGLOBIN 0.4 % (0.0-1.5); BG OXYGEN SATURATION 89.4 % (92.0-98.5); BG PCO2 50.1 mmHg (35.0-45.0); BG PH 7.457 (7.350-7.450); BG PO2 56.2 mmHg (75.0-100.0); BG SAMPLE SITE RIGHT BRACHIAL; BG TOTAL HEMOGLOBIN 9.9 g/dL (12.0-18.0); BG VENT MODE MASK - VENTI
[2018-03-23] MEDS ORDERED: FUROSEMIDE 20MG/2ML VIAL IVP NR (15:30)
[2018-03-23] MEDS: AMIODARONE HCL 900 MG in DEXT 5% WATER 482 ML IV PRN (16:34)
[2018-03-23 17:02] LABS: CHLORIDE 100 mEq/L (98-107)
[2018-03-23 18:19] LABS: BG BASE EXCESS 6.3 mmol/L (-2.0-2.0); BG BILEVEL POS AIRWAY PRESSURE 15/5; BG CARBOXYHEMOGLOBIN 0.6 % (0.5-1.5); BG DEOXYHEMOGLOBIN 7.8 % (0.0-5.0); BG FRACTION INSPIRED OXYGEN 40; BG HCO3 ACT 30.5 mmol/L (22.0-26.0); BG METHEMOGLOBIN 0.4 % (0.0-1.5); BG OXYGEN SATURATION 92.1 % (92.0-98.5); BG OXYHEMOGLOBIN 91.2 % (94.0-97.0); BG PCO2 42.8 mmHg (35.0-45.0); BG PH 7.471 (7.350-7.450); BG PO2 65.5 mmHg (75.0-100.0); BG SAMPLE SITE RIGHT RADIAL; BG TOTAL HEMOGLOBIN 10.1 g/dL (12.0-18.0); BG VENT MODE MASK - BIPAP; BG VENT RATE 18 set
[2018-03-23] MEDS: IPRATROPIUM BROMIDE (0.02%) 0.5MG/2.5ML NEB HHN SCH (20:34)
[2018-03-24] VITALS (57 sets, daily range): BP systolic 83–127; BP diastolic 31–89
[2018-03-24] MEDS: KETOROLAC TROMETHAMINE 0.4% OPHTH 5ML LEFTEYE SCH ×4 (00:23→17:31)
[2018-03-24] MEDS: METOCLOPRAMIDE HCL 10MG/2ML VIAL IV SCH ×4 (00:23→17:31)
[2018-03-24] MEDS: IPRATROPIUM BROMIDE (0.02%) 0.5MG/2.5ML NEB HHN SCH ×4 (01:33→20:20)
[2018-03-24 05:41] LABS: HEMATOCRIT. 27.4 % (36.0-48.0); HEMOGLOBIN. 8.6 g/dL (12.0-16.0); MEAN CORPUSCULAR HEMOGLOBIN 24.4 pg (28.0-32.0); MEAN CORPUSCULAR VOLUME 77.5 fL (81.0-99.0); MEAN PLATELET VOLUME 8.7 fl (7.4-10.4); PLATELET 255 x1000/uL (130-400); RED BLOOD CELL COUNT 3.54 mill/uL (4.2-5.4); RED CELL DISTRIBUTION WIDTH 19.2 % (11.6-14.6)
[2018-03-24] MEDS: ADEMPAS 2.5 MG PO SCH ×3 (06:07→21:53)
[2018-03-24 07:12] LABS: PLATELET ESTIMATE NORMAL
[2018-03-24 08:00] LABS: BG BASE EXCESS 6.9 mmol/L (-2.0-2.0); BG CARBOXYHEMOGLOBIN 0.3 % (0.5-1.5); BG DEOXYHEMOGLOBIN 8.4 % (0.0-5.0); BG FRACTION INSPIRED OXYGEN 36; BG HCO3 ACT 32.7 mmol/L (22.0-26.0); BG METHEMOGLOBIN 0.3 % (0.0-1.5); BG OXYGEN SATURATION 91.5 % (92.0-98.5); BG PCO2 53.8 mmHg (35.0-45.0); BG PH 7.402 (7.350-7.450); BG PO2 67.7 mmHg (75.0-100.0); BG SAMPLE SITE RIGHT BRACHIAL; BG TOTAL HEMOGLOBIN 9.9 g/dL (12.0-18.0); BG VENT MODE NASAL CANNULA
[2018-03-24] MEDS: DILTIAZEM HCL 30MG TABLET PO SCH ×2 (09:00→14:00)
[2018-03-24] MEDS: LETAIRIS 10 MG PO SCH (09:00)
[2018-03-24] MEDS: LACTULOSE 20G/30ML UDC PO PRN (09:14)
[2018-03-24] MEDS: METHYLPREDNISOLONE SOD SUCC 40 MG/ML VIAL IV SCH (09:14)
[2018-03-24] MEDS: ENOXAPARIN 80MG/0.8ML SYR SUBCUT SCH ×2 (09:14→21:53)
[2018-03-24] MEDS: PANTOPRAZOLE SODIUM 40 MG/VIAL IV SCH (09:14)
[2018-03-24] MEDS: GUAIFENESIN 600MG ER TABLET PO SCH ×2 (09:15→21:51)
[2018-03-24] MEDS: VERAPAMIL HCL 2.5 MG/1 ML 2ML VIAL IV PRN ×3 (10:59→21:54)
[2018-03-24] MEDS ORDERED: AMIODARONE HCL 900 MG in DEXT 5% WATER 482 ML IV SCH (12:00)
[2018-03-24] MEDS: ACETYLCYSTEINE 100MG/ML 10% VIAL 4ML INH SCH ×2 (13:42→20:20)
[2018-03-24] MEDS: AMIODARONE HCL 900 MG in DEXT 5% WATER 482 ML IV PRN (14:05)
[2018-03-24] MEDS ORDERED: SODIUM CHLORIDE 0.9% 250 ML IV ONE (14:15)
[2018-03-25] VITALS (82 sets, daily range): BP systolic 98–155; BP diastolic 35–102
[2018-03-25] MEDS: METOCLOPRAMIDE HCL 10MG/2ML VIAL IV SCH ×4 (01:00→17:55)
[2018-03-25] MEDS: IPRATROPIUM BROMIDE (0.02%) 0.5MG/2.5ML NEB HHN SCH ×4 (01:26→21:06)
[2018-03-25] MEDS: VERAPAMIL HCL 2.5 MG/1 ML 2ML VIAL IV PRN (03:57)
[2018-03-25] MEDS: ADEMPAS 2.5 MG PO SCH ×3 (06:00→22:00)
[2018-03-25] MEDS: KETOROLAC TROMETHAMINE 0.4% OPHTH 5ML LEFTEYE SCH ×5 (06:00→23:19)
[2018-03-25] MEDS ORDERED: VERAPAMIL HCL 2.5 MG/1 ML 2ML VIAL IV NR (06:00)
[2018-03-25 06:07] LABS: HEMATOCRIT. 28.5 % (36.0-48.0); HEMOGLOBIN. 8.9 g/dL (12.0-16.0); MEAN CORPUSCULAR HEMOGLOBIN 24.3 pg (28.0-32.0); MEAN PLATELET VOLUME 8.7 fl (7.4-10.4); PLATELET 277 x1000/uL (130-400); RED BLOOD CELL COUNT 3.65 mill/uL (4.2-5.4); RED CELL DISTRIBUTION WIDTH 19.1 % (11.6-14.6)
[2018-03-25] MEDS ORDERED: AMIODARONE HCL 150 MG in DEXT 5% WATER 100 ML IV NR (06:15)
[2018-03-25 06:22] LABS: CHLORIDE 102 mEq/L (98-107)
[2018-03-25] MEDS: ACETYLCYSTEINE 100MG/ML 10% VIAL 4ML INH SCH ×2 (08:06→14:40)
[2018-03-25] MEDS: GUAIFENESIN 600MG ER TABLET PO SCH ×2 (09:00→22:24)
[2018-03-25] MEDS: PANTOPRAZOLE SODIUM 40 MG/VIAL IV SCH (09:15)
[2018-03-25] MEDS: METHYLPREDNISOLONE SOD SUCC 40 MG/ML VIAL IV SCH (09:15)
[2018-03-25] MEDS: ENOXAPARIN 80MG/0.8ML SYR SUBCUT SCH ×2 (09:16→22:25)
[2018-03-25 09:17] LABS: PLATELET ESTIMATE NORMAL
[2018-03-25] MEDS ORDERED: FUROSEMIDE 40MG/4ML VIAL IVP NR (10:15)
[2018-03-25] MEDS ORDERED: PROPOFOL 200MG/20ML VIAL IV NR (11:30)
[2018-03-25] MEDS: AMIODARONE HCL 200 MG TABLET PO SCH (22:24)
[2018-03-26] VITALS (61 sets, daily range): BP systolic 100–139; BP diastolic 52–105
[2018-03-26] MEDS: METOCLOPRAMIDE HCL 10MG/2ML VIAL IV SCH ×4 (01:14→18:38)
[2018-03-26] MEDS: IPRATROPIUM BROMIDE (0.02%) 0.5MG/2.5ML NEB HHN SCH ×4 (03:00→21:02)
[2018-03-26] MEDS: ACETYLCYSTEINE 100MG/ML 10% VIAL 4ML INH SCH ×2 (03:00→08:42)
[2018-03-26 05:11] LABS: HEMOGLOBIN. 9.4 g/dL (12.0-16.0); MEAN CORPUSCULAR HEMOGLOBIN 24.6 pg (28.0-32.0); MEAN CORPUSCULAR VOLUME 78.5 fL (81.0-99.0); MEAN PLATELET VOLUME 8.5 fl (7.4-10.4); PLATELET 290 x1000/uL (130-400); RED BLOOD CELL COUNT 3.82 mill/uL (4.2-5.4); RED CELL DISTRIBUTION WIDTH 19.8 % (11.6-14.6)
[2018-03-26 05:18] LABS: CHLORIDE 100 mEq/L (98-107)
[2018-03-26] MEDS: KETOROLAC TROMETHAMINE 0.4% OPHTH 5ML LEFTEYE SCH ×3 (06:00→18:00)
[2018-03-26] MEDS: ADEMPAS 2.5 MG PO SCH (06:00)
[2018-03-26 07:35] LABS: NUCLEATED RED BLOOD CELLS 1 /100 WBC; PLATELET ESTIMATE NORMAL
[2018-03-26] MEDS: GUAIFENESIN 600MG ER TABLET PO SCH ×2 (09:18→22:23)
[2018-03-26] MEDS: METHYLPREDNISOLONE SOD SUCC 40 MG/ML VIAL IV SCH (09:18)
[2018-03-26] MEDS: PANTOPRAZOLE SODIUM 40 MG/VIAL IV SCH (09:18)
[2018-03-26] MEDS: AMIODARONE HCL 200 MG TABLET PO SCH ×2 (09:18→22:23)
[2018-03-26] MEDS: ENOXAPARIN 80MG/0.8ML SYR SUBCUT SCH ×2 (09:19→22:24)
[2018-03-26] MEDS ORDERED: FUROSEMIDE 40MG/4ML VIAL IVP NR (11:10)
[2018-03-27] VITALS (40 sets, daily range): BP systolic 86–135; BP diastolic 28–88
[2018-03-27] MEDS: IPRATROPIUM BROMIDE (0.02%) 0.5MG/2.5ML NEB HHN SCH ×4 (00:55→22:18)
[2018-03-27] MEDS: ACETYLCYSTEINE 100MG/ML 10% VIAL 4ML INH SCH ×3 (00:56→22:17)
[2018-03-27] MEDS: METOCLOPRAMIDE HCL 10MG/2ML VIAL IV SCH ×5 (01:28→23:58)
[2018-03-27] MEDS: LETAIRIS 10 MG PO SCH (09:00)
[2018-03-27] MEDS ORDERED: NON FORMULARY PATIENT HOME MED EA XX SCH ×2 (09:00)
[2018-03-27] MEDS: GUAIFENESIN 600MG ER TABLET PO SCH ×2 (09:12→21:31)
[2018-03-27] MEDS: ENOXAPARIN 80MG/0.8ML SYR SUBCUT SCH ×2 (09:12→21:31)
[2018-03-27] MEDS: AMIODARONE HCL 200 MG TABLET PO SCH ×2 (09:12→21:32)
[2018-03-27] MEDS: PANTOPRAZOLE SODIUM 40 MG/VIAL IV SCH (09:12)
[2018-03-27] MEDS: ADEMPAS 2.5 MG PO SCH (09:13)
[2018-03-27] MEDS: PREDNISONE 20MG TABLET PO SCH (09:15)
[2018-03-27] MEDS: DILTIAZEM HCL 30MG TABLET PO SCH ×3 (14:24→23:58)
[2018-03-27] MEDS: KETOROLAC TROMETHAMINE 0.4% OPHTH 5ML LEFTEYE SCH ×2 (23:57)
[2018-03-28] VITALS (12 sets, daily range): BP systolic 93–108; BP diastolic 59–80
[2018-03-28] MEDS: IPRATROPIUM BROMIDE (0.02%) 0.5MG/2.5ML NEB HHN SCH ×4 (03:39→21:23)
[2018-03-28 05:36] LABS: CHLORIDE 102 mEq/L (98-107)
[2018-03-28] MEDS: ACETYLCYSTEINE 100MG/ML 10% VIAL 4ML INH SCH ×2 (06:00→14:00)
[2018-03-28] MEDS: DILTIAZEM HCL 30MG TABLET PO SCH ×3 (06:00→17:22)
[2018-03-28] MEDS: METOCLOPRAMIDE HCL 10MG/2ML VIAL IV SCH ×3 (06:15→17:27)
[2018-03-28] MEDS: KETOROLAC TROMETHAMINE 0.4% OPHTH 5ML LEFTEYE SCH ×3 (06:15→17:27)
[2018-03-28 06:16] LABS: HEMATOCRIT. 29.5 % (36.0-48.0); HEMOGLOBIN. 9.5 g/dL (12.0-16.0); MEAN CORPUSCULAR HEMOGLOBIN 25.1 pg (28.0-32.0); MEAN CORPUSCULAR VOLUME 78.3 fL (81.0-99.0); MEAN PLATELET VOLUME 9.2 fl (7.4-10.4); PLATELET 271 x1000/uL (130-400); RED BLOOD CELL COUNT 3.77 mill/uL (4.2-5.4); RED CELL DISTRIBUTION WIDTH 19.8 % (11.6-14.6)
[2018-03-28] MEDS: GUAIFENESIN 600MG ER TABLET PO SCH ×2 (08:45→21:48)
[2018-03-28] MEDS: ENOXAPARIN 80MG/0.8ML SYR SUBCUT SCH ×2 (08:45→21:47)
[2018-03-28] MEDS: PREDNISONE 20MG TABLET PO SCH (08:46)
[2018-03-28] MEDS: PANTOPRAZOLE SODIUM 40 MG/VIAL IV SCH (08:46)
[2018-03-28] MEDS: ADEMPAS 2.5 MG PO SCH (08:50)
[2018-03-28] MEDS: LETAIRIS 10 MG PO SCH (08:50)
[2018-03-28] MEDS: AMIODARONE HCL 200 MG TABLET PO SCH ×2 (08:53→21:47)
[2018-03-28 11:58] LABS: PLATELET ESTIMATE NORMAL
[2018-03-28] MEDS ORDERED: INFLUENZA VIRUS VACCINE 0.5ML SYR IM ONE (17:00)
[2018-03-29] VITALS (13 sets, daily range): BP systolic 96–115; BP diastolic 57–73
[2018-03-29] MEDS: METOCLOPRAMIDE HCL 10MG/2ML VIAL IV SCH ×4 (00:31→19:17)
[2018-03-29] MEDS: DILTIAZEM HCL 30MG TABLET PO SCH ×4 (00:32→18:00)
[2018-03-29] MEDS: KETOROLAC TROMETHAMINE 0.4% OPHTH 5ML LEFTEYE SCH ×4 (00:33→18:00)
[2018-03-29] MEDS: IPRATROPIUM BROMIDE (0.02%) 0.5MG/2.5ML NEB HHN SCH ×4 (02:13→20:56)
[2018-03-29] MEDS: ACETYLCYSTEINE 100MG/ML 10% VIAL 4ML INH SCH ×3 (02:24→14:48)
[2018-03-29 06:44] LABS: HEMATOCRIT. 30.3 % (36.0-48.0); HEMOGLOBIN. 9.7 g/dL (12.0-16.0); MEAN CORPUSCULAR HEMOGLOBIN 24.9 pg (28.0-32.0); MEAN CORPUSCULAR VOLUME 78.2 fL (81.0-99.0); MEAN PLATELET VOLUME 8.6 fl (7.4-10.4); PLATELET 309 x1000/uL (130-400); RED BLOOD CELL COUNT 3.87 mill/uL (4.2-5.4); RED CELL DISTRIBUTION WIDTH 20.1 % (11.6-14.6)
[2018-03-29 07:35] LABS: CHLORIDE 100 mEq/L (98-107)
[2018-03-29] MEDS: ADEMPAS 2.5 MG PO SCH (09:00)
[2018-03-29] MEDS: LETAIRIS 10 MG PO SCH (09:00)
[2018-03-29] MEDS: PANTOPRAZOLE SODIUM 40 MG/VIAL IV SCH (09:31)
[2018-03-29] MEDS: AMIODARONE HCL 200 MG TABLET PO SCH ×2 (09:31→21:24)
[2018-03-29] MEDS: GUAIFENESIN 600MG ER TABLET PO SCH ×2 (09:31→21:24)
[2018-03-29] MEDS: ENOXAPARIN 80MG/0.8ML SYR SUBCUT SCH ×2 (09:32→21:24)
[2018-03-29] MEDS ORDERED: FUROSEMIDE 20MG/2ML VIAL IVP NR (16:00)
[2018-03-29 18:43] LABS: PLATELET ESTIMATE NORMAL
== END 2018-03-29 21:57 | DRG 207 ==
LOC: ER 05:03 → 5EST 09:03 → EDBEDREQ 09:05 → EDBEDREQTM 09:05 → EDBEDREQSVC 09:05 → ENRESERV 09:26 → CVICU 12:10 → 5EST 03-27 13:47
PROVIDERS: ADMIT Internal Medicine Nephrology; ATTEND Internal Medicine Nephrology
PROC: 5A1955Z Respiratory Ventilation, Greater than 96 Consecutive Hours (ICD-10-PCS; principal; 2018-03-16)
PROC: 0BH17EZ Insertion of Endotracheal Airway into Trachea, Via Natural or Artificial Opening (ICD-10-PCS; 2018-03-16)
PROC: 5A09357 Assistance with Respiratory Ventilation, Less than 24 Consecutive Hours, Continuous Positive Airway Pressure (ICD-10-PCS; 2018-03-16)
PROC: 5A09357 Assistance with Respiratory Ventilation, Less than 24 Consecutive Hours, Continuous Positive Airway Pressure (ICD-10-PCS; 2018-03-23)
PROC: 5A09357 Assistance with Respiratory Ventilation, Less than 24 Consecutive Hours, Continuous Positive Airway Pressure (ICD-10-PCS; 2018-03-24)
PROC: 5A2204Z Restoration of Cardiac Rhythm, Single (ICD-10-PCS; 2018-03-25)
PROC: 5A09357 Assistance with Respiratory Ventilation, Less than 24 Consecutive Hours, Continuous Positive Airway Pressure (ICD-10-PCS; 2018-03-25)
PROC: 5A09357 Assistance with Respiratory Ventilation, Less than 24 Consecutive Hours, Continuous Positive Airway Pressure (ICD-10-PCS; 2018-03-26)
PROC: 5A09357 Assistance with Respiratory Ventilation, Less than 24 Consecutive Hours, Continuous Positive Airway Pressure (ICD-10-PCS; 2018-03-27)
DX: J96.22 Acute and chronic respiratory failure with hypercapnia (principal); I50.43 Acute on chronic combined systolic (congestive) and diastolic (congestive) heart failure; J69.0 Pneumonitis due to inhalation of food and vomit; E43 Unspecified severe protein-calorie malnutrition; G93.40 Encephalopathy, unspecified; J44.1 Chronic obstructive pulmonary disease with (acute) exacerbation; E87.2 Acidosis; E87.0 Hyperosmolality and hypernatremia; I42.9 Cardiomyopathy, unspecified; I48.4 Atypical atrial flutter; R65.10 Systemic inflammatory response syndrome (SIRS) of non-infectious origin without acute organ dysfunction; D63.8 Anemia in other chronic diseases classified elsewhere; M19.90 Unspecified osteoarthritis, unspecified site; D72.821 Monocytosis (symptomatic); Z96.652 Presence of left artificial knee joint; I27.20 Pulmonary hypertension, unspecified; I11.0 Hypertensive heart disease with heart failure; I48.91 Unspecified atrial fibrillation; I48.0 Paroxysmal atrial fibrillation; D25.9 Leiomyoma of uterus, unspecified; K21.9 Gastro-esophageal reflux disease without esophagitis; R79.89 Other specified abnormal findings of blood chemistry; R74.8 Abnormal levels of other serum enzymes; Z92.3 Personal history of irradiation; Z85.3 Personal history of malignant neoplasm of breast; Z86.711 Personal history of pulmonary embolism; Z87.891 Personal history of nicotine dependence; Z99.81 Dependence on supplemental oxygen; Z86.718 Personal history of other venous thrombosis and embolism; Z68.28 Body mass index [BMI] 28.0-28.9, adult; Z88.6 Allergy status to analgesic agent; Z91.013 Allergy to seafood; Z79.899 Other long term (current) drug therapy; Z79.01 Long term (current) use of anticoagulants
CPT/HCPCS: 36415; 36600; 71045; 71275; 76856; 80048; 80053; 80076; 80305; 81003; 82270; 82375; 82805; 82962; 83735; 83880; 84443; 84478; 84484; 85014; 85018; 85025; 85379; 85610; 87040; 87070; 87086; 90686; 92950; 93005; 93306; 93970; 94002; 94003; 94640; 94644; 94660; 96374; 96375; 97110; 97162; 97164; 99291; A6261; C1893; C9113; J0280; J0282; J0330; J0692; J1650; J1815; J1940; J2250; J2270; J2405; J2704; J2765; J2920; J2930; J3490; J7030; J7040; J7050; J7060; J7512; J7608; J7611; J7620; J7626; P9047; Q9967; A4315